=== PATIENT | female | born 1935 | race Caucasian/White ===

== ENCOUNTER 2019-03-21 14:32 | Inpatient (IN) ==
--- NOTE | 2019-03-21 14:56 | Emergency Department Note ---
Disposition Clinical Impression: Pneumonia Qualifiers: Pneumonia type: due to unspecified organism Laterality: left Lung location: lower lobe of lung Qualified Code(s): J18.1 - Lobar pneumonia, unspecified organism Disposition: Admitted As Inpatient Condition: Good Referrals: Meet Calvo MD [Primary Care Provider] - Time of Disposition: 17:07 General Adult HPI - General Stated complaint: pain in lungs Time Seen by Provider: 03/21/19 14:56 Source: patient Mode of arrival: private vehicle Limitations: no limitations Nursing Notes Reviewed: Yes Vital Signs Reviewed: Yes - History of Present Illness HPI Narrative: 83-year-old white female presents emergency department via private vehicle accompanied by several family members. She apparently has a history of having pneumonia in the past. She feels like she has pain in her "left lung." She is had no increase in cough or sputum production. She denies any fever or chills presently, but says that she has them on occasion. She denies any shortness of breath. She is had no abdominal pain, nausea, or vomiting. She appears to be comfortable presently. She has a history of COPD and has never been diagnosed with congestive heart failure according to her family. - Related Data Home Medications Medication Instructions Recorded Confirmed Cholecalciferol (Vitamin D3) 2,000 unit PO DAILY 11/30/17 03/21/19 [Vitamin D] Ipratropium/Albuterol Neb [Duoneb] 3 ml IH QID 11/30/17 03/21/19 Isosorbide MONOnitrate [Isosorbide 60 mg PO DAILY 11/30/17 03/21/19 Mononitrate] Lactobacillus Combination No.8 1 tab PO DAILY 11/30/17 03/21/19 [Adult Probiotic] Montelukast [Singulair] 10 mg PO DAILY 11/30/17 03/21/19 NIFEdipine [Nifedipine ER] 30 mg PO DAILY 11/30/17 03/21/19 Pravastatin Sodium [Pravachol] 40 mg PO DAILY 11/30/17 03/21/19 Raloxifene [Evista] 60 mg PO DAILY 11/30/17 03/21/19 Theophylline Anhydrous 150 mg PO DAILY 11/30/17 03/21/19 [Theophylline] Triamcinolone Acetonide [Nasacort] 2 spray NS DAILY 11/30/17 03/21/19 Alendronate Sodium [Fosamax] 70 mg PO QWEEK 02/19/18 03/21/19 Aspirin [Adult Aspirin Regimen] 81 mg PO DAILY 02/19/18 03/21/19 Buspirone HCl [Buspar] 10 mg PO TID 02/19/18 03/21/19 Furosemide [Lasix] 20 mg PO DAILY 02/19/18 03/21/19 Guaifenesin [Mucus ER] 600 mg PO BID PRN 02/19/18 03/21/19 Calcium Carbonate [Calcium] 600 mg PO DAILY 08/20/18 03/21/19 Venlafaxine HCl [Effexor Xr] 37.5 mg PO DAILY 08/20/18 03/21/19 Fluticasone/Umeclidin/Vilanter 1 each IH DAILY 12/11/18 03/21/19 [Trelegy Ellipta 100-62.5-25] Fluorouracil [Carac] 30 gm TP BID 02/11/19 03/21/19 Metoprolol Tartrate [Lopressor] 25 mg PO BID 02/11/19 03/21/19 Potassium Chloride [Klor-Con 10] 20 meq PO DAILY 02/11/19 03/21/19 Ranitidine HCl [Acid Outpatient Program Coordinator] 150 mg PO BID 02/11/19 03/21/19 Roflumilast [Daliresp] 500 mcg PO DAILY 02/11/19 03/21/19 Vit C/E/Zn/Coppr/Lutein/Zeaxan 2 / PO DAILY 03/21/19 03/21/19 [Preservision Areds 2 Softgel] Previous Rx's Medication Instructions Recorded Levalbuterol Tartrate [Xopenex Hfa] 15 gm IH Q8H #1 hfa.aer.ad 12/27/18 Allergies Allergy/AdvReac Type Severity Reaction Status Date / Time atorvastatin [From Lipitor] Allergy Hives Verified 03/21/19 14:49 doxycycline Allergy Rash Verified 03/21/19 14:49 iodine Allergy See Verified 03/21/19 14:49 Comments iopamidol [From Isovue-M] Allergy Hives Verified 03/21/19 14:49 lisinopril Allergy Rash Verified 03/21/19 14:49 metformin Allergy Rash Verified 03/21/19 14:49 Penicillins Allergy Gastrointestinal Verified 03/21/19 14:49 Upset Sulfa (Sulfonamide Allergy Rash Verified 03/21/19 14:49 Antibiotics) All systems ED: reviewed and negative except as stated. Constitutional: Denies: fever, chills, weakness, weight change Eyes: Denies: eye pain, eye discharge, vision change ENT ED: Denies: ear pain, throat pain, dental pain, hearing loss, epistaxis, congestion, dysphagia Cardiovascular: Reports: as per HPI, chest pain. Denies: palpitations, dyspnea on exertion, edema, syncope Respiratory: Reports: as per HPI. Denies: cough, dyspnea, wheezes Gastrointestinal: Denies: abdominal pain, nausea, vomiting, diarrhea, constipation, hematemesis, melena, hematochezia Genitourinary: Denies: dysuria, frequency, hematuria, discharge Musculoskeletal: Denies: back pain, neck pain, arthralgia, myalgia Integumentary: Denies: rash, abrasion, lesions Neurological: Denies: headache, weakness, numbness, paresthesias, confusion, abnormal gait, vertigo Psychiatric: Denies: anxiety, depression, suicidal thoughts, homicidal thoughts, auditory hallucinations, visual hallucinations Endocrine: Denies: fatigue Hematological/Lymphatic: Denies: easy bleeding, easy bruising Allergic/Immunologic: Denies: facial swelling, urticaria Past Medical History - Past Medical History Medical history: Reports: COPD, coronary artery disease, GERD, hyperlipidemia, hypertension Surgical history: Reports: angioplasty/stent, hysterectomy Psychiatric history: Reports: 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, 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 - Social History Smoking Status: Never smoker Smokeless Tobacco Status: No Alcohol use: Reports: none Drug use: Reports: none Physical Exam - General Limitations: no limitations General appearance: alert, in no apparent distress - Head Head exam: atraumatic, normocephalic, normal inspection - Eye Eye exam: Present: normal appearance - ENT ENT exam: normal exam, normal oropharynx, mucous membranes moist - Neck Neck exam: Present: normal inspection, full ROM, trachea midline - Chest Chest inspection: Present: normal inspection, symmetric chest wall rise - Respiratory Respiratory exam: Present: normal lung sounds bilaterally - Cardiovascular Cardiovascular exam: Present: regular rate, normal rhythm, normal heart sounds - Abdominal Exam Abdominal exam: Present: soft, Non-Tender. Absent: tenderness, distention, guarding, rebound, rigidity, organomegaly, mass - Extremities Exam Extremities exam: Present: normal inspection, full ROM. Absent: tenderness, pedal edema - Back Exam Back exam: Present: normal inspection, full ROM. Absent: tenderness, CVA tenderness (R), CVA tenderness (L) - Neurological Exam Neurological exam: Present: alert, oriented X3, CN II-XII intact. Absent: motor sensory deficit - Psychiatric Psychiatric exam: Present: normal affect, normal mood - Skin Skin exam: Present: warm, dry, intact, normal color Course Course Narrative: Discussed the patient's results with the patient and her family and it is agreed that she would need to be admitted to the hospital. Spoke with Dr. Calloway at [phone] and the patient will be admitted here in [place]. Orders will be written for Dr. Calloway. Vital Signs Temperature 97.7 F 03/21/19 14:45 Pulse Rate 87 03/21/19 14:45 Respiratory Rate 26 03/21/19 14:45 Blood Pressure 135/63 03/21/19 14:45 O2 Sat by Pulse Oximetry 93 03/21/19 14:45 Temperature 97.7 F 03/21/19 14:45 Pulse Rate 87 03/21/19 14:45 Respiratory Rate 26 03/21/19 14:45 Blood Pressure 135/63 03/21/19 14:45 O2 Sat by Pulse Oximetry 93 03/21/19 14:45 Oxygen Delivery Oxygen Delivery Nasal Cannula Medical Decision Making - Lab Data Lab results reviewed: Yes I reviewed the patient's lab results. Result diagrams: 03/21/19 15:31 03/21/19 15:31 Lab Results 03/21/19 03/21/19 03/21/19 Range/Units 15:31 15:31 15:31 WBC 24.7 H (4.3-11.1) K/mcL RBC 4.19 (3.82-4.97) M/mcL Hgb 12.5 (11.5-15.4) g/dL Hct 37.2 (35.3-44.9) % MCV 88.8 (83.0-100.0) fL MCH 29.8 (28.0-33.3) pg MCHC 33.6 (31.6-35.5) g/dL RDW 14.7 H (11.5-14.5) % Plt Count 588 H (140-400) K/mcL MPV 9.3 L (9.4-12.4) fL Immature Gran % 1.3 (0-4) % Seg Neutrophils % 88.1 % Lymphocytes % 3.4 % Monocytes % 6.3 % Eosinophils % 0.6 % Basophils % 0.3 % Neutrophils # 21.8 H (1.6-8.9) K/mcL Lymphocytes # 0.8 (0.6-4.6) K/mcL Monocytes # 1.6 H (0.0-1.3) K/mcL Eosinophils # 0.2 (0.0-0.6) K/mcL Basophils # 0.1 (0.0-0.2) K/mcL PT 12.3 H (9.4-12.1) Seconds INR 1.1 Sodium 129 L (136-145) mEq/L Potassium 4.1 (3.5-5.1) mEq/L Chloride 96 L (98-107) mEq/L Carbon Dioxide 27 (23-29) mEq/L BUN 17 (8-23) mg/dL Creatinine 0.73 (0.60-1.20) mg/dL Est GFR ( Amer) > 60 (> 60) Est GFR (Non-Af Amer) > 60 (> 60) BUN/Creatinine Ratio 23 (6-26) Glucose 160 H (70-105) mg/dL Calculated Osmolality 273 L (280-300) Lactic Acid (0.5-2.2) mmol/L Calcium 9.7 (8.6-10.3) mg/dL Troponin I < 0.03 (< 0.04) ng/mL B-Natriuretic Peptide (Less than 100) pg/mL 03/21/19 03/21/19 Range/Units 15:31 15:31 WBC (4.3-11.1) K/mcL RBC (3.82-4.97) M/mcL Hgb (11.5-15.4) g/dL Hct (35.3-44.9) % MCV (83.0-100.0) fL MCH (28.0-33.3) pg MCHC (31.6-35.5) g/dL RDW (11.5-14.5) % Plt Count (140-400) K/mcL MPV (9.4-12.4) fL Immature Gran % (0-4) % Seg Neutrophils % % Lymphocytes % % Monocytes % % Eosinophils % % Basophils % % Neutrophils # (1.6-8.9) K/mcL Lymphocytes # (0.6-4.6) K/mcL Monocytes # (0.0-1.3) K/mcL Eosinophils # (0.0-0.6) K/mcL Basophils # (0.0-0.2) K/mcL PT (9.4-12.1) Seconds INR Sodium (136-145) mEq/L Potassium (3.5-5.1) mEq/L Chloride (98-107) mEq/L Carbon Dioxide (23-29) mEq/L BUN (8-23) mg/dL Creatinine (0.60-1.20) mg/dL Est GFR ( Amer) (> 60) Est GFR (Non-Af Amer) (> 60) BUN/Creatinine Ratio (6-26) Glucose (70-105) mg/dL Calculated Osmolality (280-300) Lactic Acid 1.9 (0.5-2.2) mmol/L Calcium (8.6-10.3) mg/dL Troponin I (< 0.04) ng/mL B-Natriuretic Peptide 124 H (Less than 100) pg/mL - Radiology Data Radiology results reviewed: Yes I reviewed the patient's radiology results. XR chest 2V IMPRESSION: Mild increase in the small left pleural effusion and left lower lobe atelectasis Mild COPD D/ / Austin Baxter MD / Austin Baxter MD - EKG Data EKG #1 EKG attestation: Yes I reviewed and interpreted this EKG. EKG results narrative: Twelve-lead EKG shows a normal sinus rhythm with a rate of 90. Normal axis. No acute ST elevation or depression is appreciated.
[2019-03-21 15:44] LABS: Basophils # 0.1 K/mcL (0.0-0.2); Basophils % 0.3 %; Eosinophils # 0.2 K/mcL (0.0-0.6); Eosinophils % 0.6 %; Hematocrit 37.2 % (35.3-44.9); Hemoglobin 12.5 g/dL (11.5-15.4); Immature Granulocytes % 1.3 % (0-4); Lymphocytes # 0.8 K/mcL (0.6-4.6); Lymphocytes % 3.4 %; Mean Corpuscular HGB Conc 33.6 g/dL (31.6-35.5); Mean Corpuscular Hemoglobin 29.8 pg (28.0-33.3); Mean Corpuscular Volume 88.8 fL (83.0-100.0); Mean Platelet Volume 9.3 fL (9.4-12.4); Monocytes # 1.6 K/mcL (0.0-1.3); Monocytes % 6.3 %; Neutrophils # 21.8 K/mcL (1.6-8.9); Platelet Count 588 K/mcL (140-400); Red Blood Count 4.19 M/mcL (3.82-4.97); Red Cell Distribution Width 14.7 % (11.5-14.5); Segmented Neutrophils % 88.1 %; White Blood Count 24.7 K/mcL (4.3-11.1)
[2019-03-21 15:52] LABS: INR 1.1; Prothrombin Time 12.3 Seconds (9.4-12.1)
[2019-03-21] MEDS ORDERED: Aztreonam 2,000 MG in 0.9 % Sodium Chloride Mini Bag 100 ML IVPB ONE (16:00)
[2019-03-21] MEDS ORDERED: levoFLOXacin 750 MG/150 ML 750 MG/150 ML BAG IVPB ONE (16:01)
[2019-03-21 16:07] LABS: BUN/Creatinine Ratio 23 (6-26); Blood Urea Nitrogen 17 mg/dL (8-23); Calcium 9.7 mg/dL (8.6-10.3); Carbon Dioxide 27 mEq/L (23-29); Chloride 96 mEq/L (98-107); Glucose 160 mg/dL (70-105); Osmolality,Calculated 273 (280-300); Potassium 4.1 mEq/L (3.5-5.1); Sodium 129 mEq/L (136-145); eGFR For African Americans > 60 (> 60); eGFR For Non-African Americans > 60 (> 60)
[2019-03-21 16:11] LABS: Troponin I < 0.03 ng/mL (< 0.04)
[2019-03-21] MEDS ORDERED: Naloxone 0.4 MG/ML INJ IVP PRN (19:48)
[2019-03-21] MEDS: 0.9 % Sodium Chloride 1,000 ML IVC SCH (22:21)
[2019-03-21] MEDS: Ipratropium/Albuterol Neb 3 ML IH SCH (22:22)
[2019-03-21] MEDS: Famotidine 20 MG TABLET PO SCH (22:22)
[2019-03-21] MEDS: FLUOROURACIL 30 GM TP SCH (22:23)
[2019-03-21] MEDS: Levalbuterol 1 PUFF INHALER IH SCH (23:29)
[2019-03-21] MEDS: traMADol 50 MG TABLET PO PRN (23:30)
[2019-03-22] MEDS: Ipratropium/Albuterol Neb 3 ML IH SCH ×4 (05:36→23:00)
[2019-03-22] MEDS: traMADol 50 MG TABLET PO PRN ×3 (05:36→22:33)
[2019-03-22] MEDS: Levalbuterol 1 PUFF INHALER IH SCH ×3 (07:21→23:01)
[2019-03-22] MEDS: Acetaminophen 325 MG TABLET PO PRN (09:12)
[2019-03-22] MEDS: Venlafaxine XR (24 HR) 37.5 MG CAP.ER.24H PO SCH (09:13)
[2019-03-22] MEDS: Aspirin Enteric Coated 81 MG Tablet PO SCH (09:13)
[2019-03-22] MEDS: Famotidine 20 MG TABLET PO SCH ×2 (09:13→21:24)
[2019-03-22] MEDS: Isosorbide MONOnitrate (24 HR) 60 MG TAB.ER.24H PO SCH (09:13)
[2019-03-22] MEDS: Furosemide 20 MG TABLET PO SCH (09:14)
[2019-03-22] MEDS: Multivit/Ca/Min/Fe/FA 1 TAB TABLET PO SCH (09:14)
[2019-03-22] MEDS: Cholecalciferol (D-3) 1,000 UNIT (25MCG) TABLET PO SCH (09:14)
[2019-03-22] MEDS: Lactobacillus 1 EACH CAP.SPRINK PO SCH (09:14)
[2019-03-22] MEDS: (Roflumilast [Daliresp] 500 MCG) PO SCH (09:15)
[2019-03-22] MEDS: Fluticasone Propionate Nasal 50 MCG/SPRAY BOTTLE NS SCH (09:15)
[2019-03-22] MEDS: (Pravastatin Sodium [Pravachol] 40 MG) PO SCH (09:15)
[2019-03-22] MEDS: NIFEdipine XL (24 HR) 30 MG TAB.ER.24 PO SCH (09:17)
[2019-03-22] MEDS: FLUOROURACIL 30 GM TP SCH ×2 (09:22→21:29)
[2019-03-22] MEDS: TRELEGY ELLIPTA IH SCH (09:23)
[2019-03-22] MEDS: THEOPHYLLINE 150 MG PO SCH (09:23)
--- NOTE | 2019-03-22 09:53 | Internal Med History&Physical ---
Date of Encounter: 03/22/19 Time of Encounter: 09:51 Assessment and Plan (1) Pneumonia Current visit: Yes Status: Acute Continue antibiotics and breathing treatments. Monitor for improvement. Qualifiers: Pneumonia type: due to unspecified organism Laterality: left Lung location: lower lobe of lung Qualified Code(s): J18.1 - Lobar pneumonia, unspecified organism (2) COPD (chronic obstructive pulmonary disease) Current visit: Yes Status: Acute Continue oxygen. Continue inhaled meds. Monitor. Qualifiers: COPD type: unspecified COPD Qualified Code(s): J44.9 - Chronic obstructive pulmonary disease, unspecified (3) CAD (coronary artery disease) Current visit: Yes Status: Acute Stable. Denies chest pain. Continue current medication. Qualifiers: Coronary Disease-Associated Artery/Lesion type: unspecified vessel or lesion type [place] vs. transplanted heart: [place] heart Associated angina: without angina Qualified Code(s): I25.10 - Atherosclerotic heart disease of [place] coronary artery without angina pectoris (4) Hypertension Current visit: Yes Status: Acute Controlled with current medication. Monitor blood pressure. Qualifiers: Hypertension type: essential hypertension Qualified Code(s): I10 - Essential (primary) hypertension Internal Medicine - H&P: HPI Admitted From: Emergency Dept Plans for Post Hospital Care: Home History of present illness: Ms. Gonsales is a 83 year old female admitted to hospital after presenting to emergency room with shortness of breath and pain and left lung area. Patient states this started the night before and progressively got worse throughout the day. Patient denies cough, fever, chills, nausea vomiting or diarrhea. Denies increased shortness of breath at this time. Denies chest pain at this time. Is being treated for pneumonia. Past medical history includes COPD, CAD, Gerd, hyperlipidemia, hypertension, anxiety and depression. Lives at home with Niece. Does have home oxygen and just wears on an as needed basis. States appetite is decreased that is maintaining hydration. Last bowel movement was yesterday. Past Med Surg Social Fam HX - Past Medical History Medical history: COPD, coronary artery disease, GERD, hyperlipidemia, hypertension Psychiatric history: anxiety, depression - Past Surgical History Surgical History: angioplasty/stent, hysterectomy Additional surgical history: heart stent - Social History Smoking Status: Former smoker Smokeless Tobacco Status: No Alcohol use: none Drug use: none - Family History Mother Living Status: Internal Medicine - H&P: Meds Cholecalciferol (Vitamin D3) [Vitamin D] 2,000 unit PO DAILY 11/30/17 [History] Ipratropium/Albuterol Neb [Duoneb] 3 ml IH QID 11/30/17 [History] Isosorbide MONOnitrate [Isosorbide Mononitrate] 60 mg PO DAILY 11/30/17 [History] Lactobacillus Combination No.8 [Adult Probiotic] 1 tab PO DAILY 11/30/17 [History] Montelukast [Singulair] 10 mg PO DAILY 11/30/17 [History] NIFEdipine [Nifedipine ER] 30 mg PO DAILY 11/30/17 [History] Pravastatin Sodium [Pravachol] 40 mg PO DAILY 11/30/17 [History] Raloxifene [Evista] 60 mg PO DAILY 11/30/17 [History] Theophylline Anhydrous [Theophylline] 150 mg PO DAILY 11/30/17 [History] Triamcinolone Acetonide [Nasacort] 2 spray NS DAILY 11/30/17 [History] Alendronate Sodium [Fosamax] 70 mg PO QWEEK 02/19/18 [History] Aspirin [Adult Aspirin Regimen] 81 mg PO DAILY 02/19/18 [History] Buspirone HCl [Buspar] 10 mg PO TID 02/19/18 [History] Furosemide [Lasix] 20 mg PO DAILY 02/19/18 [History] Guaifenesin [Mucus ER] 600 mg PO BID PRN 02/19/18 [History] Calcium Carbonate [Calcium] 600 mg PO DAILY 08/20/18 [History] Venlafaxine HCl [Effexor Xr] 37.5 mg PO DAILY 08/20/18 [History] Fluticasone/Umeclidin/Vilanter [Trelegy Ellipta 100-62.5-25] 1 each IH DAILY 12/11/18 [History] Levalbuterol Tartrate [Xopenex Hfa] 15 gm IH Q8H #1 hfa.aer.ad 12/27/18 [Rx] Fluorouracil [Carac] 30 gm TP BID 02/11/19 [History] Metoprolol Tartrate [Lopressor] 25 mg PO BID 02/11/19 [History] Potassium Chloride [Klor-Con 10] 20 meq PO DAILY 02/11/19 [History] Ranitidine HCl [Acid Talent Analyst] 150 mg PO BID 02/11/19 [History] Roflumilast [Daliresp] 500 mcg PO DAILY 02/11/19 [History] Vit C/E/Zn/Coppr/Lutein/Zeaxan [Preservision Areds 2 Softgel] 2 / PO DAILY 03/21/19 [History] Allergy/AdvReac Type Severity Reaction Status Date / Time atorvastatin [From Lipitor] Allergy Hives Verified 03/21/19 14:49 doxycycline Allergy Rash Verified 03/21/19 14:49 iodine Allergy See Verified 03/21/19 14:49 Comments iopamidol [From Isovue-M] Allergy Hives Verified 03/21/19 14:49 lisinopril Allergy Rash Verified 03/21/19 14:49 metformin Allergy Rash Verified 03/21/19 14:49 Penicillins Allergy Gastrointestinal Verified 03/21/19 14:49 Upset Sulfa (Sulfonamide Allergy Rash Verified 03/21/19 14:49 Antibiotics) All Systems PM: A 10-system review of systems was performed and is negative for pertinent findings except as documented above in the HPI. - Constitutional Constitutional: no chills, no fever(s), no night sweats - EENT Eyes: no change in vision, no discharge, no pain, no photophobia Ears: no ear discharge, no ear pain, no tinnitus Nose, mouth and throat: no dysphagia, no nasal discharge, no neck pain, no sore throat - Cardiovascular Cardiovascular ROS IM: no chest pain, no diaphoresis, no dyspnea, no lightheadedness, no palpitations, no syncope - Respiratory Respiratory: no cough, no dyspnea, no wheezing, no excessive phlegm production - Gastrointestinal Gastrointestinal: no abdominal pain, no diarrhea, no hematemesis, no hematochezia, no melena, no nausea, no vomiting - Genitourinary Genitourinary: no change in urinary stream, no dysuria, no flank pain, no hematuria - Musculoskeletal Musculoskeletal ROS IM: no numbness, no tingling - Integumentary Integumentary IM: no rash, no unusual bruising - Neurological Neurological ROS: no confusion, no convulsions, no focal weakness, no numbness, no tingling, no tremor(s) - Hematologic/Lymphatic Hematologic/Lymphatic: no easy bruising - Constitutional Vitals: Temp Pulse Resp BP Pulse Ox 96.8 F L 76 18 130/73 93 03/22/19 07:54 03/22/19 07:54 03/22/19 07:54 03/22/19 07:54 03/22/19 07:54 General appearance: Present: cooperative, A&O X 3, pleasant, no acute distress, answers questions appropriately Exam: Sitting in chair - Head Head exam: Present: atraumatic, normocephalic - Eye Eye exam: Present: PERRL, conjuntiva pink, sclera anicteric Pupils: Present: PERRL - Neck Neck exam general surgery: Present: supple, trachea midline. Absent: lymphadenopathy - Respiratory Respiratory exam: Present: CTAB. Absent: accessory muscle use, rales, rhonchi, wheezes Additional comments: Diminished throughout - Cardiovascular Cardiovascular exam: Present: RRR, +S1, +S2, systolic murmur. Absent: diastolic murmur, gallop, rubs - GI/Abdominal GI/Abdominal exam: Present: normal bowel sounds, soft, no peritoneal signs. Absent: distended, tenderness - Extremities Exam Extremities exam: Present: warm, radial pulses palpable and symmetrical. Absent: calf tenderness, cyanotic, pedal edema Additional comments: Non-pitting edema to bilateral lower extremities. - Neurological Exam Neurological exam: Present: CN II-XII intact, oriented X3, no focal deficits. Absent: pronater drift, facial droop, speech deficit - Skin Skin exam: Present: dry, intact Internal Med - H&P Results - Labs CBC & Chem 7: 03/21/19 15:31 03/21/19 15:31 Labs: Short CBC 03/21/19 Range/Units 15:31 WBC 24.7 H (4.3-11.1) K/mcL Hgb 12.5 (11.5-15.4) g/dL Hct 37.2 (35.3-44.9) % Plt Count 588 H (140-400) K/mcL Neutrophils # 21.8 H (1.6-8.9) K/mcL BMP 03/21/19 15:31 Sodium 129 L Potassium 4.1 Chloride 96 L Carbon Dioxide 27 BUN 17 Creatinine 0.73 Glucose 160 H Calcium 9.7 Cardiac Enzymes 03/21/19 Range/Units 15:31 Troponin I < 0.03 (< 0.04) ng/mL - Impressions ITS Impressions Chest X-Ray 03/21/19 15:04 IMPRESSION: Mild increase in the small left pleural effusion and left lower lobe atelectasis. Mild COPD. D/ / 03/21/2019 16:01:33 Austin Baxter MD / [email or web address] Interpreting Provider: Austin Baxter MD
[2019-03-22] MEDS ORDERED: Melatonin 3 MG TABLET PO PRN (10:06)
[2019-03-22] MEDS: *HR* Promethazine 25 MG/ML VIAL IVP PRN (10:43)
[2019-03-22 11:14] LABS: Basophils # 0.1 K/mcL (0.0-0.2); Basophils % 0.3 %; Eosinophils # 0.1 K/mcL (0.0-0.6); Eosinophils % 0.5 %; Hematocrit 35.5 % (35.3-44.9); Hemoglobin 11.6 g/dL (11.5-15.4); Lymphocytes # 0.4 K/mcL (0.6-4.6); Lymphocytes % 2.3 %; Mean Corpuscular HGB Conc 32.7 g/dL (31.6-35.5); Mean Corpuscular Hemoglobin 29.6 pg (28.0-33.3); Mean Corpuscular Volume 90.6 fL (83.0-100.0); Mean Platelet Volume 9.3 fL (9.4-12.4); Monocytes # 1.2 K/mcL (0.0-1.3); Monocytes % 6.1 %; Platelet Count 521 K/mcL (140-400); Red Blood Count 3.92 M/mcL (3.82-4.97); Segmented Neutrophils % 88.8 %; White Blood Count 19.1 K/mcL (4.3-11.1)
[2019-03-22 11:32] LABS: BUN/Creatinine Ratio 16 (6-26); Blood Urea Nitrogen 10 mg/dL (8-23); Calcium 8.9 mg/dL (8.6-10.3); Carbon Dioxide 27 mEq/L (23-29); Chloride 95 mEq/L (98-107); Glucose 180 mg/dL (70-105); Osmolality,Calculated 274 (280-300); Sodium 130 mEq/L (136-145); eGFR For African Americans > 60 (> 60); eGFR For Non-African Americans > 60 (> 60)
[2019-03-22] MEDS: *HR* Enoxaparin 30 MG/0.3 ML SYRINGE SQ SCH (12:22)
[2019-03-22] MEDS: levoFLOXacin 500 MG/100 ML 500 MG/100 ML BAG IVPB SCH (14:11)
[2019-03-22] MEDS: 0.9 % Sodium Chloride 1,000 ML IVC SCH (21:22)
[2019-03-23] MEDS: traMADol 50 MG TABLET PO PRN ×3 (04:34→17:13)
[2019-03-23] MEDS: Ipratropium/Albuterol Neb 3 ML IH SCH ×4 (05:21→21:15)
[2019-03-23] MEDS: *HR* Enoxaparin 30 MG/0.3 ML SYRINGE SQ SCH (06:19)
[2019-03-23] MEDS: Levalbuterol 1 PUFF INHALER IH SCH ×3 (06:20→21:16)
[2019-03-23] MEDS: Acetaminophen 325 MG TABLET PO PRN ×3 (08:00→21:27)
[2019-03-23] MEDS: NIFEdipine XL (24 HR) 30 MG TAB.ER.24 PO SCH (10:38)
[2019-03-23] MEDS: Venlafaxine XR (24 HR) 37.5 MG CAP.ER.24H PO SCH (10:38)
[2019-03-23] MEDS: Cholecalciferol (D-3) 1,000 UNIT (25MCG) TABLET PO SCH (10:39)
[2019-03-23] MEDS: Aspirin Enteric Coated 81 MG Tablet PO SCH (10:39)
[2019-03-23] MEDS: Multivit/Ca/Min/Fe/FA 1 TAB TABLET PO SCH (10:39)
[2019-03-23] MEDS: Furosemide 20 MG TABLET PO SCH (10:39)
[2019-03-23] MEDS: Famotidine 20 MG TABLET PO SCH ×2 (10:39→21:13)
[2019-03-23] MEDS: levoFLOXacin 500 MG/100 ML 500 MG/100 ML BAG IVPB SCH (10:39)
[2019-03-23] MEDS: Isosorbide MONOnitrate (24 HR) 60 MG TAB.ER.24H PO SCH (10:39)
[2019-03-23] MEDS: Lactobacillus 1 EACH CAP.SPRINK PO SCH (10:39)
[2019-03-23] MEDS: Fluticasone Propionate Nasal 50 MCG/SPRAY BOTTLE NS SCH (10:41)
[2019-03-23] MEDS: (Roflumilast [Daliresp] 500 MCG) PO SCH (10:42)
[2019-03-23] MEDS: (Pravastatin Sodium [Pravachol] 40 MG) PO SCH (10:42)
[2019-03-23] MEDS: FLUOROURACIL 30 GM TP SCH ×2 (10:42→21:14)
[2019-03-23] MEDS: TRELEGY ELLIPTA IH SCH (10:43)
[2019-03-23] MEDS: THEOPHYLLINE 150 MG PO SCH (10:43)
--- NOTE | 2019-03-23 12:04 | Internal Med Progress Note ---
Date of Encounter: 03/23/19 Time of Encounter: 12:01 - Assessment and plan (1) Pneumonia Current Visit: Yes Status: Acute Assessment and plan: Patient continues on current IV antibiotics due to her left lower lobe pneumonia. Patient continues with complaints of a purpuric-type pain to her left chest flank which increases with deep inspiration. No rubs or crepitus noted, but noted fine basilar rales. Afebrile. No productive cough. No palpitations. We will continue with current medications and plan a care. Qualifiers: Pneumonia type: due to unspecified organism Laterality: left Lung location: lower lobe of lung Qualified Code(s): J18.1 - Lobar pneumonia, unspecified organism (2) COPD (chronic obstructive pulmonary disease) Current Visit: Yes Status: Acute Assessment and plan: No acute issues at this time. Patient denies any dyspnea or productive cough. Patient continues with complaints of a pleuritic type pain to her left chest flank. Patient also continues on antibiotics at this time for lower left lobe pneumonia. Qualifiers: COPD type: unspecified COPD Qualified Code(s): J44.9 - Chronic obstructive pulmonary disease, unspecified (3) CAD (coronary artery disease) Current Visit: Yes Status: Acute Assessment and plan: No acute issues. Patient denies any chest discomforts or palpitations. We will continue with current plan of care Qualifiers: Coronary Disease-Associated Artery/Lesion type: unspecified vessel or lesion type [place] vs. transplanted heart: [place] heart Associated angina: without angina Qualified Code(s): I25.10 - Atherosclerotic heart disease of [place] coronary artery without angina pectoris (4) Hypertension Current Visit: Yes Status: Acute Assessment and plan: Vital signs remained stable. We will continue with current medications. Qualifiers: Hypertension type: essential hypertension Qualified Code(s): I10 - Essential (primary) hypertension - Time Spent With Patient less than 15 minutes - Subjective Interval history: Patient appears relaxed and currently denies any dyspnea or productive cough. Patient states she continues to have intermittent pain underneath her left breas t area which she states has been present over the past several years intermittently. He states that the pain increases somewhat with deep inspiration. Denies any orther discomforts or palpitation. Patient has had complaints of increased tremors to her hands over the past few weeks. Patient noted to be on multiple bronchodilators - Constitutional Vitals: Temp Pulse Resp BP Pulse Ox 98.4 F 78 18 135/80 98 03/23/19 04:00 03/23/19 04:00 03/23/19 10:25 03/23/19 04:00 03/23/19 10:25 General appearance: Present: cooperative, A&O X 3, pleasant, no acute distress, answers questions appropriately - Head Head exam: Present: atraumatic, normocephalic - Eye Eye exam: Present: PERRL, conjuntiva pink, sclera anicteric Pupils: Present: PERRL - Neck Neck exam general surgery: Present: supple, trachea midline. Absent: lymphadenopathy - Respiratory Respiratory exam: Present: decreased breath sounds, CTAB, rales. Absent: access ory muscle use, rhonchi, wheezes Additional comments: Lungs are clear to upper [place] but noted fine basilar rales posteriorly. No crepitus or rub heard. Respiratory effort appears relaxed - Cardiovascular Cardiovascular exam: Present: RRR, +S1, +S2. Absent: diastolic murmur, gallop, rubs, systolic murmur - GI/Abdominal GI/Abdominal exam: Present: normal bowel sounds, soft, no peritoneal signs. Absent: distended, tenderness - Extremities Exam Extremities exam: Present: warm, radial pulses palpable and symmetrical. Absent: calf tenderness, cyanotic, pedal edema - Neurological Exam Neurological exam: Present: CN II-XII intact, oriented X3, no focal deficits. Absent: pronater drift, facial droop, speech deficit - Skin Skin exam: Present: dry, intact Internal Medicine: Result - Labs CBC & Chem 7: 03/22/19 11:03 03/22/19 11:03 - ABG Interpretation ABG results: PT/INR, D-dimer PT 12.3 Seconds (9.4-12.1) H 03/21/19 15:31 Consult Discharge Plan - Plan Referrals: Meet Calvo MD [Primary Care Provider] -
[2019-03-24] MEDS: Acetaminophen 325 MG TABLET PO PRN ×4 (04:23→23:38)
[2019-03-24] MEDS: Ipratropium/Albuterol Neb 3 ML IH SCH ×4 (04:23→23:40)
[2019-03-24] MEDS: traMADol 50 MG TABLET PO PRN ×4 (05:59→20:39)
[2019-03-24] MEDS: *HR* Enoxaparin 30 MG/0.3 ML SYRINGE SQ SCH (06:00)
[2019-03-24] MEDS: Levalbuterol 1 PUFF INHALER IH SCH ×3 (06:02→23:40)
[2019-03-24] MEDS: Fluticasone Propionate Nasal 50 MCG/SPRAY BOTTLE NS SCH (08:18)
[2019-03-24] MEDS: levoFLOXacin 500 MG/100 ML 500 MG/100 ML BAG IVPB SCH (08:18)
[2019-03-24] MEDS: Venlafaxine XR (24 HR) 37.5 MG CAP.ER.24H PO SCH (08:19)
[2019-03-24] MEDS: Famotidine 20 MG TABLET PO SCH ×2 (08:19→20:38)
[2019-03-24] MEDS: Lactobacillus 1 EACH CAP.SPRINK PO SCH ×2 (08:19→20:38)
[2019-03-24] MEDS: Isosorbide MONOnitrate (24 HR) 60 MG TAB.ER.24H PO SCH (08:19)
[2019-03-24] MEDS: NIFEdipine XL (24 HR) 30 MG TAB.ER.24 PO SCH (08:19)
[2019-03-24] MEDS: Cholecalciferol (D-3) 1,000 UNIT (25MCG) TABLET PO SCH (08:19)
[2019-03-24] MEDS: Furosemide 20 MG TABLET PO SCH (08:20)
[2019-03-24] MEDS: Aspirin Enteric Coated 81 MG Tablet PO SCH (08:20)
[2019-03-24] MEDS: Multivit/Ca/Min/Fe/FA 1 TAB TABLET PO SCH (08:20)
[2019-03-24] MEDS: (Roflumilast [Daliresp] 500 MCG) PO SCH (08:21)
[2019-03-24] MEDS: THEOPHYLLINE 150 MG PO SCH (08:21)
[2019-03-24] MEDS: FLUOROURACIL 30 GM TP SCH ×2 (08:21→20:58)
[2019-03-24] MEDS: (Pravastatin Sodium [Pravachol] 40 MG) PO SCH (08:21)
[2019-03-24] MEDS: TRELEGY ELLIPTA IH SCH (10:48)
--- NOTE | 2019-03-24 12:02 | Internal Med Progress Note ---
Date of Encounter: 03/24/19 Time of Encounter: 12:40 - Subjective Interval history: - Assessment and plan (1) Pneumonia Current Visit: Yes Status: Acute Assessment and plan: Patient continues on current IV antibiotics Levaquin due to her left lower lobe pneumonia. Patient has worsening pain to her left chest with cough. which increases with deep inspiration. No rubs or crepitus noted, but noted fine basilar rales. Afebrile. No productive cough. No palpitations. We will continue with current medications except will change her antibiotic to IV Zithromax in light of lack of clinical improvement. Will also give her sputum gram stain and culture. Will give one dose solumedrol for pleuritic pain. If continues to worsen will need imaging. Qualifiers: Pneumonia type: due to unspecified organism Laterality: left Lung location: lower lobe of lung Qualified Code(s): J18.1 - Lobar pneumonia, unspecified organism (2) COPD (chronic obstructive pulmonary disease) Current Visit: Yes Status: Acute Assessment and plan: No acute issues at this time. Patient denies any dyspnea or productive cough. Patient continues with complaints of a pleuritic type pain to her left chest flank. Patient also continues on antibiotics at this time for lower left lobe pneumonia. Qualifiers: COPD type: unspecified COPD Qualified Code(s): J44.9 - Chronic obstructive pulmonary disease, unspecified (3) CAD (coronary artery disease) Current Visit: Yes Status: Acute Assessment and plan: No acute issues. Patient denies any chest discomforts or palpitations. We will continue with current plan of care Qualifiers: Coronary Disease-Associated Artery/Lesion type: unspecified vessel or lesion type [place] vs. transplanted heart: [place] heart Associated angina: without angina Qualified Code(s): I25.10 - Atherosclerotic heart disease of [place] coronary artery without angina pectoris (4) Hypertension Current Visit: Yes Status: Acute Assessment and plan: Vital signs remained stable. We will continue with current medications. Qualifiers: Hypertension type: essential hypertension Qualified Code(s): I10 - Essential (primary) hypertension - Time Spent With Patient less than 15 minutes - Subjective Interval history: Patient has more left sided rib pain today sol with cough. slight thick light green productive cough. She states that the pain increases somewhat with deep inspiration. Denies any orther discomforts or palpitation. Pt says breathing treatments help but she feels some chilling. - EXAM General appearance: Present: Elderly WF soft spoken mild [place] cooperative,alert uncomfortable today - Head Head exam: Present: atraumatic, normocephalic - Eye Eye exam: Present: PERRL, conjuntiva pink, sclera anicteric Pupils: Present: PERRL - Neck Neck exam general surgery: Present: supple, trachea midline. Absent: lymphadenopathy - Respiratory Respiratory exam: Present: decreased breath sounds, CTAB, rales. Absent: accessory muscle use, rhonchi, wheezes Additional comments: Lungs are clear to upper [place] but noted fine basilar rales posteriorly. No crepitus or rub heard. pt notes pain with cough or inspir on left anterior ribs palpation of this area reproduces same pain. - Cardiovascular Cardiovascular exam: Present: RRR, +S1, +S2. Absent: diastolic murmur, gallop, rubs, systolic murmur - GI/Abdominal GI/Abdominal exam: Present: normal bowel sounds, soft, no peritoneal signs. Absent: distended, tenderness - Extremities Exam Extremities exam: Present: warm, radial pulses palpable and symmetrical. Absent: calf tenderness, cyanotic, pedal edema - Neurological Exam Neurological exam: Present: CN II-XII intact, oriented X3, no focal deficits. Absent: pronater drift, facial droop, speech deficit - Constitutional Vitals: Temp Pulse Resp BP Pulse Ox 98.1 F 82 18 133/73 97 03/24/19 07:18 03/24/19 07:18 03/24/19 10:53 03/24/19 07:18 03/24/19 10:53 General appearance: Present: cooperative, A&O X 3, pleasant, no acute distress, answers questions appropriately Internal Medicine: Result - Labs CBC & Chem 7: 03/25/19 05:35 03/25/19 05:35 - ABG Interpretation ABG results: PT/INR, D-dimer PT 12.3 Seconds (9.4-12.1) H 03/21/19 15:31 Consult Discharge Plan - Plan Referrals: Meet Calvo MD [Primary Care Provider] -
[2019-03-24] MEDS: Azithromycin 500 MG in D5% in Water 250 ML IVPB SCH (13:15)
[2019-03-24] MEDS: *HR* Promethazine 25 MG/ML VIAL IVP PRN (17:57)
[2019-03-24] MEDS: Ascorbic Acid 500 MG TABLET PO SCH (20:39)
[2019-03-25] MEDS: Ipratropium/Albuterol Neb 3 ML IH SCH ×3 (04:51→17:52)
[2019-03-25] MEDS: traMADol 50 MG TABLET PO PRN ×3 (04:51→21:48)
[2019-03-25 06:07] LABS: Hematocrit 34.9 % (35.3-44.9); Hemoglobin 11.2 g/dL (11.5-15.4); Mean Corpuscular HGB Conc 32.1 g/dL (31.6-35.5); Mean Corpuscular Hemoglobin 29.2 pg (28.0-33.3); Mean Corpuscular Volume 90.9 fL (83.0-100.0); Mean Platelet Volume 9.4 fL (9.4-12.4); Platelet Count 503 K/mcL (140-400); Red Blood Count 3.84 M/mcL (3.82-4.97); Red Cell Distribution Width 15.1 % (11.5-14.5); White Blood Count 9.6 K/mcL (4.3-11.1)
[2019-03-25 06:26] LABS: Alanine Aminotransferase 7 Units/L (7-52); Albumin 3.2 g/dL (3.5-5.7); Alkaline Phosphatase 51 Units/L (34-104); Aspartate Amino Transferase 11 Units/L (13-39); BUN/Creatinine Ratio 16 (6-26); Bilirubin,Total 0.3 mg/dL (0.3-1.0); Blood Urea Nitrogen 9 mg/dL (8-23); Calcium 8.7 mg/dL (8.6-10.3); Carbon Dioxide 24 mEq/L (23-29); Chloride 103 mEq/L (98-107); Globulin 3.1 g/dL (2.4-3.5); Glucose 101 mg/dL (70-105); Osmolality,Calculated 275 (280-300); Potassium 3.9 mEq/L (3.5-5.1); Sodium 133 mEq/L (136-145); Total Protein 6.3 g/dL (6.4-8.9); eGFR For African Americans > 60 (> 60); eGFR For Non-African Americans > 60 (> 60)
[2019-03-25 06:38] LABS: Thyroid Stimulating Hormone 1.272 mcIU/mL (0.340-5.600)
[2019-03-25] MEDS: *HR* Enoxaparin 30 MG/0.3 ML SYRINGE SQ SCH (06:38)
[2019-03-25] MEDS: Levalbuterol 1 PUFF INHALER IH SCH ×2 (06:39→15:18)
[2019-03-25] MEDS: NIFEdipine XL (24 HR) 30 MG TAB.ER.24 PO SCH (08:15)
[2019-03-25] MEDS: Cholecalciferol (D-3) 1,000 UNIT (25MCG) TABLET PO SCH (08:15)
[2019-03-25] MEDS: Lactobacillus 1 EACH CAP.SPRINK PO SCH ×2 (08:15→21:49)
[2019-03-25] MEDS: Venlafaxine XR (24 HR) 37.5 MG CAP.ER.24H PO SCH (08:16)
[2019-03-25] MEDS: Furosemide 20 MG TABLET PO SCH (08:16)
[2019-03-25] MEDS: Multivit/Ca/Min/Fe/FA 1 TAB TABLET PO SCH (08:16)
[2019-03-25] MEDS: Ascorbic Acid 500 MG TABLET PO SCH ×2 (08:16→21:48)
[2019-03-25] MEDS: Famotidine 20 MG TABLET PO SCH ×2 (08:17→21:49)
[2019-03-25] MEDS: Aspirin Enteric Coated 81 MG Tablet PO SCH (08:17)
[2019-03-25] MEDS: Fluticasone Propionate Nasal 50 MCG/SPRAY BOTTLE NS SCH (08:17)
[2019-03-25] MEDS: Isosorbide MONOnitrate (24 HR) 60 MG TAB.ER.24H PO SCH (08:17)
[2019-03-25] MEDS: FLUOROURACIL 30 GM TP SCH ×2 (08:18→21:49)
[2019-03-25] MEDS: (Roflumilast [Daliresp] 500 MCG) PO SCH (08:18)
[2019-03-25] MEDS: (Pravastatin Sodium [Pravachol] 40 MG) PO SCH (08:18)
[2019-03-25] MEDS: THEOPHYLLINE 150 MG PO SCH (08:19)
[2019-03-25] MEDS: Acetaminophen 325 MG TABLET PO PRN ×2 (08:26→14:04)
[2019-03-25] MEDS: TRELEGY ELLIPTA IH SCH (11:21)
[2019-03-25] MEDS: Azithromycin 500 MG in D5% in Water 250 ML IVPB SCH (13:18)
--- NOTE | 2019-03-25 16:41 | Internal Med Progress Note ---
Date of Encounter: 03/25/19 Time of Encounter: 16:20 - Subjective Interval history: - Assessment and plan (1) Pneumonia Current Visit: Yes Status: Acute Assessment and plan: Patient continues on current IV antibiotics but yesterday taken off of Levaquin for her left lower lobe pneumonia due to lack of clinical response. She was placed on IV Zithromax. She was given 1 dose solumedrol for pleuritic pain. She reports today that was helpful. She says pain less today cough improving. She reports no appetite at all. Pt cindy Finch says no appetite for many months. Patient has worsening pain to her left chest with cough. which increases with deep inspiration. No rubs or crepitus noted, but noted fine basilar rales. Afebrile. She wants to get stronger to go home. Will add Megace to assist with eating. Qualifiers: Pneumonia type: due to unspecified organism Laterality: left Lung location: lower lobe of lung Qualified Code(s): J18.1 - Lobar pneumonia, unspe cified organism (2) COPD (chronic obstructive pulmonary disease) Current Visit: Yes Status: Acute Assessment and plan: No acute issues at this time. Patient denies any dyspnea or productive cough. Patient continues with complaints of a pleuritic type pain to her left chest flank. Patient also continues on antibiotics at this time for lower left lobe pneumonia. Qualifiers: COPD type: unspecified COPD Qualified Code(s): J44.9 - Chronic obstructive pulmonary disease, unspecified (3) CAD (coronary artery disease) Current Visit: Yes Status: Acute Assessment and plan: No acute issues. Patient denies any chest discomforts or palpitations. We will continue with current plan of care Qualifiers: Coronary Disease-Associated Artery/Lesion type: unspecified vessel or lesion type [place] vs. transplanted heart: [place] heart Associated angina: without angina Qualified Code(s): I25.10 - Atherosclerotic heart disease of [place] coronary artery without angina pectoris (4) Hypertension Current Visit: Yes Status: Acute Assessment and plan: Vital signs remained stable. We will continue with current medications. Qualifiers: Hypertension type: essential hypertension Qualified Code(s): I10 - Essential (primary) hypertension - Time Spent With Patient less than 15 minutes - Subjective Interval history: Patient feeling better today. Still weak. Not eating. SAys has had no appetite for months. She did have improvment in left sided rib pain with new medication for pneumonia improved cough. still slight thick light green productive cough Alert very weak. Discussed PT She would like to go back home with her cindy Finch Requests PT to assess and strengthen. Denies any orther discomforts or palpitation. - EXAM General appearance: Present: Elderly WF thin. soft spoken mild [place] cooperative,alert [place] - Head Head exam: Present: atraumatic, normocephalic - Eye Eye exam: Present: PERRL, conjuntiva pink, sclera anicteric Pupils: Present: PERRL - Neck Neck exam general surgery: Present: supple, trachea midline. Absent: lymphadenopathy - Respiratory Respiratory exam: Present: decreased breath sounds, CTAB, rales. Absent: accessory muscle use, rhonchi, wheezes Additional comments: Lungs are clear to upper [place] but noted fine basilar rales posteriorly. No crepitus or rub heard. pt notes pain with cough or inspir on left anterior ribs palpation of this area reproduces same pain. - Cardiovascular Cardiovascular exam: Present: RRR, +S1, +S2. Absent: diastolic murmur, gallop, rubs, systolic murmur - GI/Abdominal GI/Abdominal exam: Present: normal bowel sounds, soft, no peritoneal signs. Absent: distended, tenderness - Extremities Exam Extremities exam: Present: warm, radial pulses palpable and symmetrical. Absent: calf tenderness, cyanotic, pedal edema - Neurological Exam Neurological exam: Present: CN II-XII intact, oriented X3, no focal deficits. - Constitutional Vitals: Temp Pulse Resp BP Pulse Ox 98.4 F 76 16 110/67 94 03/25/19 16:00 03/25/19 16:00 03/25/19 16:00 03/25/19 16:00 03/25/19 16:00 General appearance: Present: cooperative, A&O X 3, pleasant, no acute distress, answers questions appropriately Internal Medicine: Result - Labs CBC & Chem 7: 03/26/19 05:15 03/26/19 05:15 Labs: Short CBC 03/25/19 Range/Units 05:35 WBC 9.6 (4.3-11.1) K/mcL Hgb 11.2 L (11.5-15.4) g/dL Hct 34.9 L (35.3-44.9) % Plt Count 503 H (140-400) K/mcL BMP 03/25/19 05:35 Sodium 133 L Potassium 3.9 Chloride 103 Carbon Dioxide 24 BUN 9 Creatinine 0.57 L Glucose 101 Calcium 8.7 Liver Function 03/25/19 Range/Units 05:35 Total Bilirubin 0.3 (0.3-1.0) mg/dL AST 11 L (13-39) Units/L ALT 7 (7-52) Units/L Alkaline Phosphatase 51 (34-104) Units/L Albumin 3.2 L (3.5-5.7) g/dL - ABG Interpretation ABG results: PT/INR, D-dimer PT 12.3 Seconds (9.4-12.1) H 03/21/19 15:31 Consult Discharge Plan - Plan Referrals: Meet Calvo MD [Primary Care Provider] -
[2019-03-26] MEDS: Ipratropium/Albuterol Neb 3 ML IH SCH ×5 (01:53→22:31)
[2019-03-26] MEDS: Levalbuterol 1 PUFF INHALER IH SCH ×2 (01:54→05:05)
[2019-03-26] MEDS: traMADol 50 MG TABLET PO PRN ×3 (05:04→20:24)
[2019-03-26] MEDS: *HR* Enoxaparin 30 MG/0.3 ML SYRINGE SQ SCH (05:04)
[2019-03-26 06:01] LABS: Hematocrit 36.3 % (35.3-44.9); Hemoglobin 11.7 g/dL (11.5-15.4); Mean Corpuscular HGB Conc 32.2 g/dL (31.6-35.5); Mean Corpuscular Volume 90.1 fL (83.0-100.0); Mean Platelet Volume 9.5 fL (9.4-12.4); Platelet Count 549 K/mcL (140-400); Red Blood Count 4.03 M/mcL (3.82-4.97); White Blood Count 10.2 K/mcL (4.3-11.1)
[2019-03-26 06:09] LABS: Alanine Aminotransferase 6 Units/L (7-52); Albumin 3.2 g/dL (3.5-5.7); Alkaline Phosphatase 61 Units/L (34-104); Aspartate Amino Transferase 11 Units/L (13-39); BUN/Creatinine Ratio 18 (6-26); Bilirubin,Total 0.3 mg/dL (0.3-1.0); Blood Urea Nitrogen 10 mg/dL (8-23); Calcium 8.9 mg/dL (8.6-10.3); Carbon Dioxide 27 mEq/L (23-29); Chloride 102 mEq/L (98-107); Glucose 102 mg/dL (70-105); Osmolality,Calculated 279 (280-300); Potassium 4.4 mEq/L (3.5-5.1); Sodium 135 mEq/L (136-145); Total Protein 6.3 g/dL (6.4-8.9); eGFR For African Americans > 60 (> 60); eGFR For Non-African Americans > 60 (> 60)
[2019-03-26 06:10] LABS: Globulin 3.1 g/dL (2.4-3.5)
[2019-03-26] MEDS: Famotidine 20 MG TABLET PO SCH ×2 (07:57→20:23)
[2019-03-26] MEDS: Multivit/Ca/Min/Fe/FA 1 TAB TABLET PO SCH (07:57)
[2019-03-26] MEDS: Furosemide 20 MG TABLET PO SCH (07:57)
[2019-03-26] MEDS: Isosorbide MONOnitrate (24 HR) 60 MG TAB.ER.24H PO SCH (07:57)
[2019-03-26] MEDS: Cholecalciferol (D-3) 1,000 UNIT (25MCG) TABLET PO SCH (07:57)
[2019-03-26] MEDS: Venlafaxine XR (24 HR) 37.5 MG CAP.ER.24H PO SCH (07:57)
[2019-03-26] MEDS: Acetaminophen 325 MG TABLET PO PRN ×2 (07:57→14:29)
[2019-03-26] MEDS: Aspirin Enteric Coated 81 MG Tablet PO SCH (07:57)
[2019-03-26] MEDS: Ascorbic Acid 500 MG TABLET PO SCH ×2 (07:58→20:24)
[2019-03-26] MEDS: (Pravastatin Sodium [Pravachol] 40 MG) PO SCH (07:59)
[2019-03-26] MEDS: NIFEdipine XL (24 HR) 30 MG TAB.ER.24 PO SCH (07:59)
[2019-03-26] MEDS: Lactobacillus 1 EACH CAP.SPRINK PO SCH ×2 (07:59→20:23)
[2019-03-26] MEDS: (Roflumilast [Daliresp] 500 MCG) PO SCH (07:59)
[2019-03-26] MEDS: Fluticasone Propionate Nasal 50 MCG/SPRAY BOTTLE NS SCH (07:59)
[2019-03-26] MEDS: FLUOROURACIL 30 GM TP SCH ×2 (07:59→20:25)
[2019-03-26] MEDS: THEOPHYLLINE 150 MG PO SCH (08:00)
[2019-03-26] MEDS: TRELEGY ELLIPTA IH SCH (11:30)
--- NOTE | 2019-03-26 11:52 | Internal Med Progress Note ---
Date of Encounter: 03/26/19 Time of Encounter: 11:49 - Assessment and plan (1) Pneumonia Current Visit: Yes Status: Acute Qualifiers: Pneumonia type: due to unspecified organism Laterality: left Lung location: lower lobe of lung Qualified Code(s): J18.1 - Lobar pneumonia, unspecified organism (2) COPD (chronic obstructive pulmonary disease) Current Visit: Yes Status: Acute Qualifiers: COPD type: unspecified COPD Qualified Code(s): J44.9 - Chronic obstructive pulmonary disease, unspecified (3) CAD (coronary artery disease) Current Visit: Yes Status: Acute Qualifiers: Coronary Disease-Associated Artery/Lesion type: unspecified vessel or lesion type [place] vs. transplanted heart: [place] heart Associated angina: without angina Qualified Code(s): I25.10 - Atherosclerotic heart disease of [place] coronary artery without angina pectoris (4) Hypertension Current Visit: Yes Status: Acute Qualifiers: Hypertension type: essential hypertension Qualified Code(s): I10 - Essential (primary) hypertension - Subjective Interval history: Patient appears relaxed and currently denies any dyspnea or productive cough. Patient states she continues to have intermittent pain underneath her left breast area which she states has been present over the past several years i ntermittently. She states that the pain increases somewhat with deep inspiration. Denies any orther discomforts or palpitation. Patient states that she feels that her breathing has improved and is requesting to go home - Constitutional Vitals: Temp Pulse Resp BP Pulse Ox 98.8 F 85 17 151/79 95 03/26/19 07:16 03/26/19 07:16 03/26/19 10:14 03/26/19 07:16 03/26/19 10:14 General appearance: Present: cooperative, A&O X 3, pleasant, no acute distress, answers questions appropriately - Head Head exam: Present: atraumatic, normocephalic - Eye Eye exam: Present: PERRL, conjuntiva pink, sclera anicteric Pupils: Present: PERRL - Neck Neck exam general surgery: Present: supple, trachea midline. Absent: lymphadenopathy - Respiratory Respiratory exam: Present: decreased breath sounds, CTAB, rales. Absent: accessory muscle use, rhonchi, wheezes Additional comments: Lungs - Cardiovascular Cardiovascular exam: Present: RRR, +S1, +S2. Absent: diastolic murmur, gallop, rubs, systolic murmur - GI/Abdominal GI/Abdominal exam: Present: normal bowel sounds, soft, no peritoneal signs. Absent: distended, tenderness - Extremities Exam Extremities exam: Present: warm, radial pulses palpable and symmetrical. Absent: calf tenderness, cyanotic, pedal edema - Neurological Exam Neurological exam: Present: CN II-XII intact, oriented X3, no focal deficits. Absent: pronater drift, facial droop, speech deficit - Skin Skin exam: Present: dry, intact Internal Medicine: Result - Labs CBC & Chem 7: 03/26/19 05:15 03/26/19 05:15 Labs: Short CBC 03/26/19 Range/Units 05:15 WBC 10.2 (4.3-11.1) K/mcL Hgb 11.7 (11.5-15.4) g/dL Hct 36.3 (35.3-44.9) % Plt Count 549 H (140-400) K/mcL BMP 03/26/19 05:15 Sodium 135 L Potassium 4.4 Chloride 102 Carbon Dioxide 27 BUN 10 Creatinine 0.56 L Glucose 102 Calcium 8.9 Liver Function 03/26/19 Range/Units 05:15 Total Bilirubin 0.3 (0.3-1.0) mg/dL AST 11 L (13-39) Units/L ALT 6 L (7-52) Units/L Alkaline Phosphatase 61 (34-104) Units/L Albumin 3.2 L (3.5-5.7) g/dL - ABG Interpretation ABG results: PT/INR, D-dimer PT 12.3 Seconds (9.4-12.1) H 03/21/19 15:31 Consult Discharge Plan - Plan Referrals: Meet Calvo MD [Primary Care Provider] -
--- NOTE | 2019-03-26 12:36 | Electrocardiograph Report ---
[address] [place], [place] [address] Test Date: 2019-03-21 Pat Name: July Gonsales Department: [facility] Room: 115 Gender: F Knocker Out: : 1935 Requested By: Fito Allen Order Number: [id number] Reading MD: Florencio Morfin Measurements Intervals [place] Rate: 90 P: 78 VT: 237 QRS: 61 QRSD: 100 T: 72 QT: 382 QTc: 468 Interpretive Statements Sinus rhythm Prolonged VT interval Anterior infarct, old Electronically Signed On 03-26-2019 12:35:00 EDT by Florencio Morfin
[2019-03-26] MEDS: Azithromycin 500 MG in D5% in Water 250 ML IVPB SCH ×2 (14:29→15:38)
[2019-03-27] MEDS: Ipratropium/Albuterol Neb 3 ML IH SCH ×4 (04:34→23:27)
[2019-03-27] MEDS: traMADol 50 MG TABLET PO PRN ×3 (04:34→23:38)
[2019-03-27] MEDS: *HR* Enoxaparin 30 MG/0.3 ML SYRINGE SQ SCH (04:35)
[2019-03-27 06:21] LABS: Basophils # 0.1 K/mcL (0.0-0.2); Basophils % 0.8 %; Eosinophils # 0.3 K/mcL (0.0-0.6); Eosinophils % 1.9 %; Hematocrit 35.8 % (35.3-44.9); Hemoglobin 11.6 g/dL (11.5-15.4); Immature Granulocytes % 5.6 % (0-4); Lymphocytes # 0.8 K/mcL (0.6-4.6); Lymphocytes % 6.4 %; Mean Corpuscular HGB Conc 32.4 g/dL (31.6-35.5); Mean Corpuscular Volume 89.5 fL (83.0-100.0); Mean Platelet Volume 9.2 fL (9.4-12.4); Monocytes # 1.1 K/mcL (0.0-1.3); Monocytes % 8.5 %; Nucleated Red Blood Cells 0.3 /100 WBC (0); Platelet Count 543 K/mcL (140-400); Red Cell Distribution Width 15.1 % (11.5-14.5); Segmented Neutrophils % 76.8 %
[2019-03-27 06:42] LABS: Platelet Estimate Increased (Normal)
[2019-03-27 06:44] LABS: Alanine Aminotransferase 7 Units/L (7-52); Albumin 3.3 g/dL (3.5-5.7); Albumin/Globulin Ratio 1.1 (1.1-2.2); Alkaline Phosphatase 63 Units/L (34-104); Aspartate Amino Transferase 12 Units/L (13-39); BUN/Creatinine Ratio 22 (6-26); Bilirubin,Total 0.3 mg/dL (0.3-1.0); Blood Urea Nitrogen 13 mg/dL (8-23); Calcium 9.1 mg/dL (8.6-10.3); Carbon Dioxide 25 mEq/L (23-29); Chloride 101 mEq/L (98-107); Globulin 3.1 g/dL (2.4-3.5); Glucose 120 mg/dL (70-105); Osmolality,Calculated 279 (280-300); Potassium 4.5 mEq/L (3.5-5.1); Sodium 134 mEq/L (136-145); Total Protein 6.4 g/dL (6.4-8.9); eGFR For African Americans > 60 (> 60); eGFR For Non-African Americans > 60 (> 60)
[2019-03-27] MEDS: FLUOROURACIL 30 GM TP SCH ×2 (08:45→19:54)
[2019-03-27] MEDS: THEOPHYLLINE 150 MG PO SCH (08:45)
[2019-03-27] MEDS: Famotidine 20 MG TABLET PO SCH ×2 (09:00→19:54)
[2019-03-27] MEDS: NIFEdipine XL (24 HR) 30 MG TAB.ER.24 PO SCH (09:00)
[2019-03-27] MEDS: Furosemide 20 MG TABLET PO SCH (09:01)
[2019-03-27] MEDS: Isosorbide MONOnitrate (24 HR) 60 MG TAB.ER.24H PO SCH (09:01)
[2019-03-27] MEDS: Venlafaxine XR (24 HR) 37.5 MG CAP.ER.24H PO SCH (09:01)
[2019-03-27] MEDS: Acetaminophen 325 MG TABLET PO PRN ×2 (09:01→15:02)
[2019-03-27] MEDS: Ascorbic Acid 500 MG TABLET PO SCH ×2 (09:01→19:54)
[2019-03-27] MEDS: Multivit/Ca/Min/Fe/FA 1 TAB TABLET PO SCH (09:01)
[2019-03-27] MEDS: Lactobacillus 1 EACH CAP.SPRINK PO SCH ×2 (09:01→19:52)
[2019-03-27] MEDS: Cholecalciferol (D-3) 1,000 UNIT (25MCG) TABLET PO SCH (09:01)
[2019-03-27] MEDS: Aspirin Enteric Coated 81 MG Tablet PO SCH (09:02)
[2019-03-27] MEDS: (Pravastatin Sodium [Pravachol] 40 MG) PO SCH (09:06)
[2019-03-27] MEDS: Fluticasone Propionate Nasal 50 MCG/SPRAY BOTTLE NS SCH (09:06)
[2019-03-27] MEDS: (Roflumilast [Daliresp] 500 MCG) PO SCH (09:07)
[2019-03-27] MEDS: TRELEGY ELLIPTA IH SCH (09:08)
--- NOTE | 2019-03-27 10:35 | Internal Med Progress Note ---
Date of Encounter: 03/27/19 Time of Encounter: 10:33 - Assessment and plan (1) Pneumonia Current Visit: Yes Status: Acute Assessment and plan: Improving. Continue antibiotic. Afebrile. Qualifiers: Pneumonia type: due to unspecified organism Laterality: left Lung location: lower lobe of lung Qualified Code(s): J18.1 - Lobar pneumonia, unspecified organism (2) COPD (chronic obstructive pulmonary disease) Current Visit: Yes Status: Acute Assessment and plan: Stable. Continue incentive spirometer. Continue inhaled meds. Qualifiers: COPD type: unspecified COPD Qualified Code(s): J44.9 - Chronic obstructive pulmonary disease, unspecified (3) CAD (coronary artery disease) Current Visit: Yes Status: Acute Assessment and plan: Stable, denies chest pain. Continue current medication. Qualifiers: Coronary Disease-Associated Artery/Lesion type: unspecified vessel or lesion type [place] vs. transplanted heart: [place] heart Associated angina: without angina Qualified Code(s): I25.10 - Atherosclerotic heart disease of [place] coronary artery without angina pectoris (4) Hypertension Current Visit: Yes Status: Acute Assessment and plan: Controlled with current medication. Monitor blood pressure. Qualifiers: Hypertension type: essential hypertension Qualified Code(s): I10 - Essential (primary) hypertension - Time Spent With Patient less than 15 minutes - Subjective Interval history: Sitting up and chair, respiratory therapist encouraging incentive spirometer. Patient denies cough, shortness of breath, fever, chills, nausea vomiting or diarrhea. Denies chest pain States she is tired and needs to go home so she can get some rest. Has been afebrile. Continues on antibiotics. PT to eval due to general weakness. - Constitutional Vitals: Temp Pulse Resp BP Pulse Ox 98.5 F 89 17 138/85 95 03/27/19 07:00 03/27/19 07:00 03/27/19 10:05 03/27/19 07:00 03/27/19 10:05 General appearance: Present: cooperative, A&O X 3, pleasant, no acute distress, answers questions appropriately - Head Head exam: Present: atraumatic, normocephalic - Eye Eye exam: Present: PERRL, conjuntiva pink, sclera anicteric Pupils: Present: PERRL - Neck Neck exam general surgery: Present: supple, trachea midline. Absent: lymphadenopathy - Respiratory Respiratory exam: Present: CTAB. Absent: accessory muscle use, rales, rhonchi, wheezes Additional comments: Diminished bilateral basis - Cardiovascular Cardiovascular exam: Present: RRR, +S1, +S2. Absent: diastolic murmur, gallop, rubs, systolic murmur - GI/Abdominal GI/Abdominal exam: Present: normal bowel sounds, soft, no peritoneal signs. Absent: distended, tenderness - Extremities Exam Extremities exam: Present: warm, radial pulses palpable and symmetrical. Absent: calf tenderness, cyanotic, pedal edema - Neurological Exam Neurological exam: Present: CN II-XII intact, oriented X3, no focal deficits. Absent: pronater drift, facial droop, speech deficit - Skin Skin exam: Present: dry, intact Internal Medicine: Result - Labs CBC & Chem 7: 03/27/19 05:50 03/27/19 05:50 Labs: Short CBC 03/27/19 Range/Units 05:50 WBC 13.0 H (4.3-11.1) K/mcL Hgb 11.6 (11.5-15.4) g/dL Hct 35.8 (35.3-44.9) % Plt Count 543 H (140-400) K/mcL Neutrophils # 10.0 H (1.6-8.9) K/mcL BMP 03/27/19 05:50 Sodium 134 L Potassium 4.5 Chloride 101 Carbon Dioxide 25 BUN 13 Creatinine 0.60 Glucose 120 H Calcium 9.1 Liver Function 03/27/19 Range/Units 05:50 Total Bilirubin 0.3 (0.3-1.0) mg/dL AST 12 L (13-39) Units/L ALT 7 (7-52) Units/L Alkaline Phosphatase 63 (34-104) Units/L Albumin 3.3 L (3.5-5.7) g/dL - ABG Interpretation ABG results: PT/INR, D-dimer PT 12.3 Seconds (9.4-12.1) H 03/21/19 15:31 - Impressions Impressions Chest X-Ray 03/26/19 13:11 IMPRESSION: Stable left basilar atelectasis/scarring. No acute cardiopulmonary disease. D/ / Salomón Figueroa MD / Salomón Figueroa MD Interpreting Provider: Salomón Figueroa MD Consult Discharge Plan - Plan Referrals: Meet Calvo MD [Primary Care Provider] -
[2019-03-27] MEDS: Azithromycin 500 MG in D5% in Water 250 ML IVPB SCH (12:53)
[2019-03-27] MEDS: *HR* Promethazine 25 MG/ML VIAL IVP PRN (14:03)
[2019-03-28] MEDS: *HR* Enoxaparin 30 MG/0.3 ML SYRINGE SQ SCH (04:04)
[2019-03-28] MEDS: Ipratropium/Albuterol Neb 3 ML IH SCH ×2 (04:04→11:23)
[2019-03-28] MEDS: Acetaminophen 325 MG TABLET PO PRN ×2 (04:04→13:24)
[2019-03-28 09:34] VITALS: BP 157/133
[2019-03-28] MEDS: Aspirin Enteric Coated 81 MG Tablet PO SCH (09:57)
[2019-03-28] MEDS: Ascorbic Acid 500 MG TABLET PO SCH (09:57)
[2019-03-28] MEDS: NIFEdipine XL (24 HR) 30 MG TAB.ER.24 PO SCH (09:57)
[2019-03-28] MEDS: Multivit/Ca/Min/Fe/FA 1 TAB TABLET PO SCH (09:57)
[2019-03-28] MEDS: Furosemide 20 MG TABLET PO SCH (09:57)
[2019-03-28] MEDS: Lactobacillus 1 EACH CAP.SPRINK PO SCH (09:57)
[2019-03-28] MEDS: Cholecalciferol (D-3) 1,000 UNIT (25MCG) TABLET PO SCH (09:57)
[2019-03-28] MEDS: Isosorbide MONOnitrate (24 HR) 60 MG TAB.ER.24H PO SCH (09:58)
[2019-03-28] MEDS: Venlafaxine XR (24 HR) 37.5 MG CAP.ER.24H PO SCH (09:58)
[2019-03-28] MEDS: Famotidine 20 MG TABLET PO SCH (09:58)
[2019-03-28] MEDS: Fluticasone Propionate Nasal 50 MCG/SPRAY BOTTLE NS SCH (09:59)
[2019-03-28] MEDS: (Pravastatin Sodium [Pravachol] 40 MG) PO SCH (10:00)
[2019-03-28] MEDS: FLUOROURACIL 30 GM TP SCH (10:00)
[2019-03-28] MEDS: THEOPHYLLINE 150 MG PO SCH (10:01)
[2019-03-28] MEDS: (Roflumilast [Daliresp] 500 MCG) PO SCH (10:01)
--- NOTE | 2019-03-28 11:39 | Discharge Summary ---
Orders not resulted at time of discharge: Pending orders 03/24/19 12:04 Culture,Sputum with Gram Stain [] Routine Date of Encounter: 03/28/19 Time of Encounter: 11:37 - Discharge Diagnosis (1) Pneumonia Priority: Primary Status: Acute Comments: Patient was admitted with complaints of shortness of breath and was found to have left lower lobe pneumonia per chest x-ray on admission. Patient also continues with complaints of left chest flank pain is been a chronic issue over the past several months. Patient has been treated with IV antibiotics and continues on Zithromax at this time. Patient will be given a prescription for 5 days of Zithromax to finish out her treatment. Patient had follow-up chest x- ray which showed clearing of the left lower lobe pneumonia. Patient continues with complaints of pain to the left chest flank that no rubs or crepitus is heard on auscultation. Patient will be given a prescription for Toradol for the next 7 days and follow-up with her PCP within the next week for further evaluation and treatment Qualifiers: Pneumonia type: due to unspecified organism Laterality: left Lung lo cation: lower lobe of lung Qualified Code(s): J18.1 - Lobar pneumonia, unspecified organism (2) COPD (chronic obstructive pulmonary disease) Priority: Secondary Status: Acute Comments: Patient was treated for pneumonia during her stay. Patient continues on bron chodilators at this time and denies any dyspnea or productive cough. Patient will continue on her current medications after discharge and follow up with her PCP after discharge within the next week for further evaluation and treatment Qualifiers: COPD type: unspecified COPD Qualified Code(s): J44.9 - Chronic obstructive pulmonary disease, unspecified (3) CAD (coronary artery disease) Priority: Secondary Status: Acute Comments: No issues during her stay at this facility. Patient has denied any chest discomforts or palpitations. We will continue with current home medications after discharge and follow-up with her PCP Qualifiers: Coronary Disease-Associated Artery/Lesion type: unspecified vessel or lesion type [place] vs. transplanted heart: [place] heart Associated angina: without angina Qualified Code(s): I25.10 - Atherosclerotic heart disease of [place] coronary artery without angina pectoris (4) Hypertension Priority: Secondary Status: Acute Comments: Vital signs remained stable during his stay. Patient will continue with current home medications and follow-up with her PCP Qualifiers: Hypertension type: essential hypertension Qualified Code(s): I10 - Essential (primary) hypertension Hospital course: Ms. Gonsales is a 83 year old female, admitted to hospital after presenting to emergency room with shortness of breath and pain and left lung area. Patient states this started the night before admission and progressively got worse throughout the day. Patient denied cough, fever, chills, nausea vomiting or diarrhea. Patient had a chest x-ray which confirmed lower left lobe pneumonia and was treated with IV antibiotics during her stay of facility. Patient has remained afebrile for past 48 hours. Denies any dyspnea or productive cough. Follow-up chest x-ray which showed clearing of left lower lobe pneumonia. Patient will be given a prescription for Zithromax to be continued for the next 5 days complete her treatment. Patient was also had complaints of left chest flank pain which has been present over the past several months. Patient will be given a prescription for Toradol for when necessary use and is to follow-up with her PCP in the next 7 days. Past medical history includes COPD, CAD, Gerd, hyperlipidemia, hypertension, anxiety and depression. Lives at home with Niece. Does have home oxygen and ju st wears on an as needed basis. Discharge discussed with: patient Time spent discussing smoking cessation with patient: 3 to 10 minutes - Time Spent with Patient Total time spent providing and/or coordinating discharge services: Time spent: Less than 30 minutes - Discharge Medications Prescriptions: No Action Cholecalciferol (Vitamin D3) [Vitamin D] 2,000 unit PO DAILY Triamcinolone Acetonide [Nasacort] 2 spray NS DAILY Theophylline Anhydrous [Theophylline] 150 mg PO DAILY Raloxifene [Evista] 60 mg PO DAILY Lactobacillus Combination No.8 [Adult Probiotic] 1 tab PO DAILY Pravastatin Sodium [Pravachol] 40 mg PO DAILY NIFEdipine [Nifedipine ER] 30 mg PO DAILY Montelukast [Singulair] 10 mg PO DAILY Isosorbide MONOnitrate [Isosorbide Mononitrate] 60 mg PO DAILY Ipratropium/Albuterol Neb [Duoneb] 3 ml IH QID Guaifenesin [Mucus ER] 600 mg PO BID PRN PRN Reason: Congestion Furosemide [Lasix] 20 mg PO DAILY Alendronate Sodium [Fosamax] 70 mg PO QWEEK Buspirone HCl [Buspar] 10 mg PO TID Aspirin [Adult Aspirin Regimen] 81 mg PO DAILY Calcium Carbonate [Calcium] 600 mg PO DAILY Venlafaxine HCl [Effexor Xr] 37.5 mg PO DAILY Fluticasone/Umeclidin/Vilanter [Trelegy Ellipta 100-62.5-25] 1 each IH DAILY Levalbuterol Tartrate [Xopenex Hfa] 15 gm IH Q8H #1 hfa.aer.ad Fluorouracil [Carac] 30 gm TP BID Metoprolol Tartrate [Lopressor] 25 mg PO BID Potassium Chloride [Klor-Con 10] 20 meq PO DAILY Ranitidine HCl [Acid Real Estate Instructor] 150 mg PO BID Roflumilast [Daliresp] 500 mcg PO DAILY Vit C/E/Zn/Coppr/Lutein/Zeaxan [Preservision Areds 2 Softgel] 2 / PO DAILY Home Medications: Cholecalciferol (Vitamin D3) [Vitamin D] 2,000 unit PO DAILY 11/30/17 [History] Ipratropium/Albuterol Neb [Duoneb] 3 ml IH QID 11/30/17 [History] Isosorbide MONOnitrate [Isosorbide Mononitrate] 60 mg PO DAILY 11/30/17 [History] Lactobacillus Combination No.8 [Adult Probiotic] 1 tab PO DAILY 11/30/17 [History] Montelukast [Singulair] 10 mg PO DAILY 11/30/17 [History] NIFEdipine [Nifedipine ER] 30 mg PO DAILY 11/30/17 [History] Pravastatin Sodium [Pravachol] 40 mg PO DAILY 11/30/17 [History] Raloxifene [Evista] 60 mg PO DAILY 11/30/17 [History] Theophylline Anhydrous [Theophylline] 150 mg PO DAILY 11/30/17 [History] Triamcinolone Acetonide [Nasacort] 2 spray NS DAILY 11/30/17 [History] Alendronate Sodium [Fosamax] 70 mg PO QWEEK 02/19/18 [History] Aspirin [Adult Aspirin Regimen] 81 mg PO DAILY 02/19/18 [History] Buspirone HCl [Buspar] 10 mg PO TID 02/19/18 [History] Furosemide [Lasix] 20 mg PO DAILY 02/19/18 [History] Guaifenesin [Mucus ER] 600 mg PO BID PRN 02/19/18 [History] Calcium Carbonate [Calcium] 600 mg PO DAILY 08/20/18 [History] Venlafaxine HCl [Effexor Xr] 37.5 mg PO DAILY 08/20/18 [History] Fluticasone/Umeclidin/Vilanter [Trelegy Ellipta 100-62.5-25] 1 each IH DAILY 12/11/18 [History] Levalbuterol Tartrate [Xopenex Hfa] 15 gm IH Q8H #1 hfa.aer.ad 12/27/18 [Rx] Fluorouracil [Carac] 30 gm TP BID 02/11/19 [History] Metoprolol Tartrate [Lopressor] 25 mg PO BID 02/11/19 [History] Potassium Chloride [Klor-Con 10] 20 meq PO DAILY 02/11/19 [History] Ranitidine HCl [Acid Real Estate Instructor] 150 mg PO BID 02/11/19 [History] Roflumilast [Daliresp] 500 mcg PO DAILY 02/11/19 [History] Vit C/E/Zn/Coppr/Lutein/Zeaxan [Preservision Areds 2 Softgel] 2 / PO DAILY 03/21/19 [History] Allergies/Adverse Reactions: Allergy/AdvReac Type Severity Reaction Status Date / Time atorvastatin [From Lipitor] Allergy Hives Verified 03/21/19 14:49 doxycycline Allergy Rash Verified 03/21/19 14:49 iodine Allergy See Verified 03/21/19 14:49 Comments iopamidol [From Isovue-M] Allergy Hives Verified 03/21/19 14:49 lisinopril Allergy Rash Verified 03/21/19 14:49 metformin Allergy Rash Verified 03/21/19 14:49 Penicillins Allergy Gastrointestinal Verified 03/21/19 14:49 Upset Sulfa (Sulfonamide Allergy Rash Verified 03/21/19 14:49 Antibiotics) Date of admission: 03/21/19 17:52 Primary care physician: Meet Calvo MD Consults: 03/26/19 13:07 Consult to Physical Therapy [CONS] Routine Comment: Evaluate, develop and implement POC Reason for Consult: increased weakness and unsteady gait Does patient have active BEDREST order?: No Is patient medically & hemodynamically stable?: Yes Patient assessed for mobility or mobilized this visit?: No Discharging clinician: Sukhdeep Calloway - Constitutional Vitals: Temp Pulse Resp BP Pulse Ox 98.4 F 89 18 157/133 97 03/28/19 08:00 03/28/19 08:00 03/28/19 11:25 03/28/19 08:00 03/28/19 11:25 General appearance: Present: cooperative, A&O X 3, pleasant, no acute distress, answers questions appropriately - Head Head exam: Present: atraumatic, normocephalic - Eye Eye exam: Present: PERRL, conjuntiva pink, sclera anicteric Pupils: Present: PERRL - Neck Neck exam general surgery: Present: supple, trachea midline. Absent: lymphadenopathy - Respiratory Respiratory exam: Present: decreased breath sounds, CTAB, rales. Absent: accessory muscle use, rhonchi, wheezes Additional comments: Lungs are clear throughout upper [place] with diminished breath sounds to lower half. Patient with fine bibasilar rales. Respiratory effort appears relaxed. No productive cough noted. - Cardiovascular Cardiovascular exam: Present: RRR, +S1, +S2. Absent: diastolic murmur, gallop, rubs, systolic murmur - GI/Abdominal GI/Abdominal exam: Present: normal bowel sounds, soft, no peritoneal signs. Absent: distended, tenderness - Extremities Exam Extremities exam: Present: warm, radial pulses palpable and symmetrical. Absent: calf tenderness, cyanotic, pedal edema - Neurological Exam Neurological exam: Present: CN II-XII intact, oriented X3, no focal deficits. Absent: pronater drift, facial droop, speech deficit - Skin Skin exam: Present: dry, intact - Patient Status Disposition: Home, Self-Care Condition: Good Functional capacity at discharge: uses cane/walker Overall status at discharge: patient is progressing back to baseline - Discharge Instructions Follow Up With: Meet Calvo MD [Primary Care Provider] - Forms: ED Satisfaction Letter - Diet and Activity Activity: increase activity as tolerated Diet: low fat, low cholesterol, low salt diet
[2019-03-28] MEDS: Azithromycin 500 MG in D5% in Water 250 ML IVPB SCH (12:56)
[2019-03-28] MEDS: TRELEGY ELLIPTA IH SCH (13:28)
== END 2019-03-28 14:50 | disposition home or self-care (01) | DRG 194 ==
LOC: EMEROOGRE 14:32 → INPGRE 14:32 → OBSVTOIN 17:52 → INPGRE 18:50

== ENCOUNTER 2021-06-15 18:28 | Inpatient (IN) ==
[2021-06-15] MEDS ORDERED: Nitroglycerin 0.4 MG TAB.SUBL SL PRN (23:35)
[2021-06-15] MEDS ORDERED: NON-FORMULARY MEDICATION 1 EACH EACH (Alendronate Sodium [Fosamax] 70 MG Tablet) PO SCH (23:45)
[2021-06-16] MEDS ORDERED: NON-FORMULARY MEDICATION 1 EACH EACH (Fluticasone/Umeclidin/Vilanter [Trelegy Ellipta 100- IH SCH (09:00)
[2021-06-16] MEDS ORDERED: Ipratropium/Albuterol Neb 3 ML IH PRN (16:09)
[2021-06-16] MEDS ORDERED: CHLORASEPTIC SPRAY TP PRN (16:37)
[2021-06-16] MEDS: *HR* Enoxaparin 40 MG/0.4 ML SYRINGE SQ SCH (17:42)
[2021-06-16] MEDS: Budesonide/Formoterol 160/4.5 1 PUFF INH IH SCH (20:48)
[2021-06-16] MEDS ORDERED: Levalbuterol 1 PUFF INHALER IH SCH (23:00)
[2021-06-17] MEDS: *HR* Enoxaparin 40 MG/0.4 ML SYRINGE SQ SCH (05:19)
[2021-06-17] MEDS: Venlafaxine XR (24 HR) 37.5 MG CAP.ER.24H PO SCH (08:23)
[2021-06-17] MEDS: Aspirin Enteric Coated 81 MG Tablet PO SCH (08:23)
[2021-06-17] MEDS: Lactobacillus 1 EACH CAP.SPRINK PO SCH (08:23)
[2021-06-17] MEDS: Multivit/Ca/Min/Fe/FA 1 TAB TABLET PO SCH (08:24)
[2021-06-17] MEDS: Cholecalciferol (D-3) 1,000 UNIT (25MCG) TABLET PO SCH (08:24)
[2021-06-17] MEDS: Furosemide 20 MG TABLET PO SCH (08:27)
[2021-06-17] MEDS: (Pravastatin Sodium [Pravachol] 40 MG Tablet) PO SCH (08:28)
[2021-06-17] MEDS: (Mirabegron [Myrbetriq] 50 MG Tab.Er.24h) PO SCH (08:29)
[2021-06-17] MEDS ORDERED: Fluticasone Propionate Nasal 50 MCG/SPRAY BOTTLE NS SCH (09:00)
[2021-06-17] MEDS: Budesonide/Formoterol 160/4.5 1 PUFF INH IH SCH ×2 (10:44→20:18)
[2021-06-17] MEDS: Tiotropium 10 INH DOSE IH SCH (10:48)
[2021-06-17] MEDS ORDERED: Sennosides/Docusate Sodium TABLET PO PRN (13:58)
[2021-06-17] MEDS: polyethylene glycoL 3350 17 GM POWD.PACK PO SCH (15:51)
[2021-06-18] MEDS: *HR* Enoxaparin 40 MG/0.4 ML SYRINGE SQ SCH (05:35)
[2021-06-18 06:15] LABS: Hematocrit 30.3 % (35.3-44.9); Hemoglobin 9.9 g/dL (11.5-15.4); Mean Corpuscular HGB Conc 32.7 g/dL (31.6-35.5); Mean Corpuscular Hemoglobin 30.3 pg (28.0-33.3); Mean Corpuscular Volume 92.7 fL (83.0-100.0); Platelet Count 392 K/mcL (140-400); Red Blood Count 3.27 M/mcL (3.82-4.97); White Blood Count 10.5 K/mcL (4.3-11.1)
[2021-06-18 06:33] LABS: BUN/Creatinine Ratio 13 (6-26); Blood Urea Nitrogen 9 mg/dL (8-23); Carbon Dioxide 30 mEq/L (23-29); Chloride 101 mEq/L (98-107); Glucose 96 mg/dL (70-105); Osmolality,Calculated 281 (280-300); Potassium 3.7 mEq/L (3.5-5.1); Sodium 136 mEq/L (136-145); eGFR For African Americans > 60 (> 60); eGFR For Non-African Americans > 60 (> 60)
[2021-06-18] MEDS: Multivit/Ca/Min/Fe/FA 1 TAB TABLET PO SCH (10:59)
[2021-06-18] MEDS: Furosemide 20 MG TABLET PO SCH (10:59)
[2021-06-18] MEDS: Lactobacillus 1 EACH CAP.SPRINK PO SCH (10:59)
[2021-06-18] MEDS: Cholecalciferol (D-3) 1,000 UNIT (25MCG) TABLET PO SCH (10:59)
[2021-06-18] MEDS: Aspirin Enteric Coated 81 MG Tablet PO SCH (11:00)
[2021-06-18] MEDS: Fluticasone Propionate Nasal 50 MCG/SPRAY BOTTLE NS SCH (11:00)
[2021-06-18] MEDS: Venlafaxine XR (24 HR) 37.5 MG CAP.ER.24H PO SCH (11:00)
[2021-06-18] MEDS: polyethylene glycoL 3350 17 GM POWD.PACK PO SCH (11:01)
[2021-06-18] MEDS: (Mirabegron [Myrbetriq] 50 MG Tab.Er.24h) PO SCH (11:02)
[2021-06-18] MEDS: (Pravastatin Sodium [Pravachol] 40 MG Tablet) PO SCH (11:02)
[2021-06-18] MEDS: Tiotropium 10 INH DOSE IH SCH (11:13)
[2021-06-18] MEDS: Budesonide/Formoterol 160/4.5 1 PUFF INH IH SCH ×2 (11:14→22:23)
[2021-06-18] MEDS ORDERED: Bisacodyl 10 MG RECTAL SUPPOSITORY RC ONE (14:54)
[2021-06-19] MEDS: *HR* Enoxaparin 40 MG/0.4 ML SYRINGE SQ SCH (05:54)
[2021-06-19] MEDS: polyethylene glycoL 3350 17 GM POWD.PACK PO SCH (08:34)
[2021-06-19] MEDS: (Pravastatin Sodium [Pravachol] 40 MG Tablet) PO SCH (08:34)
[2021-06-19] MEDS: (Mirabegron [Myrbetriq] 50 MG Tab.Er.24h) PO SCH (08:35)
[2021-06-19] MEDS: Lactobacillus 1 EACH CAP.SPRINK PO SCH (08:36)
[2021-06-19] MEDS: Aspirin Enteric Coated 81 MG Tablet PO SCH (08:36)
[2021-06-19] MEDS: Furosemide 20 MG TABLET PO SCH (08:36)
[2021-06-19] MEDS: Cholecalciferol (D-3) 1,000 UNIT (25MCG) TABLET PO SCH (08:36)
[2021-06-19] MEDS: Fluticasone Propionate Nasal 50 MCG/SPRAY BOTTLE NS SCH (08:36)
[2021-06-19] MEDS: Multivit/Ca/Min/Fe/FA 1 TAB TABLET PO SCH (08:38)
[2021-06-19] MEDS: Venlafaxine XR (24 HR) 37.5 MG CAP.ER.24H PO SCH (08:52)
[2021-06-19] MEDS: Tiotropium 10 INH DOSE IH SCH (12:12)
[2021-06-19] MEDS: Budesonide/Formoterol 160/4.5 1 PUFF INH IH SCH ×2 (12:12→20:07)
[2021-06-19] MEDS: Magnesium Oxide 400 MG TABLET PO SCH (21:55)
[2021-06-20] MEDS: *HR* Enoxaparin 40 MG/0.4 ML SYRINGE SQ SCH (04:17)
[2021-06-20 07:51] LABS: Hematocrit 30.9 % (35.3-44.9); Hemoglobin 10.1 g/dL (11.5-15.4); Mean Corpuscular HGB Conc 32.7 g/dL (31.6-35.5); Mean Corpuscular Hemoglobin 31.3 pg (28.0-33.3); Mean Corpuscular Volume 95.7 fL (83.0-100.0); Mean Platelet Volume 10.2 fL (9.4-12.4); Platelet Count 266 K/mcL (140-400); Red Blood Count 3.23 M/mcL (3.82-4.97); Red Cell Distribution Width 15.1 % (11.5-14.5); White Blood Count 9.4 K/mcL (4.3-11.1)
[2021-06-20 08:09] LABS: Alanine Aminotransferase 4 Units/L (7-52); Albumin 2.5 g/dL (3.5-5.7); Albumin/Globulin Ratio 1.1 (1.1-2.2); Alkaline Phosphatase 51 Units/L (34-104); Aspartate Amino Transferase 11 Units/L (13-39); BUN/Creatinine Ratio 21 (6-26); Bilirubin,Total 0.4 mg/dL (0.3-1.0); Blood Urea Nitrogen 13 mg/dL (8-23); Calcium 8.6 mg/dL (8.6-10.3); Carbon Dioxide 26 mEq/L (23-29); Chloride 102 mEq/L (98-107); Globulin 2.2 g/dL (2.4-3.5); Glucose 98 mg/dL (70-105); Magnesium 1.9 mg/dL (1.6-2.6); Osmolality,Calculated 286 (280-300); Sodium 138 mEq/L (136-145); Total Protein 4.7 g/dL (6.4-8.9); eGFR For African Americans > 60 (> 60); eGFR For Non-African Americans > 60 (> 60)
[2021-06-20] MEDS: Venlafaxine XR (24 HR) 37.5 MG CAP.ER.24H PO SCH (09:42)
[2021-06-20] MEDS: Aspirin Enteric Coated 81 MG Tablet PO SCH (09:42)
[2021-06-20] MEDS: polyethylene glycoL 3350 17 GM POWD.PACK PO SCH (09:42)
[2021-06-20] MEDS: Cholecalciferol (D-3) 1,000 UNIT (25MCG) TABLET PO SCH (09:42)
[2021-06-20] MEDS: Lactobacillus 1 EACH CAP.SPRINK PO SCH (09:43)
[2021-06-20] MEDS: Furosemide 20 MG TABLET PO SCH (09:43)
[2021-06-20] MEDS: Multivit/Ca/Min/Fe/FA 1 TAB TABLET PO SCH (09:43)
[2021-06-20] MEDS: Fluticasone Propionate Nasal 50 MCG/SPRAY BOTTLE NS SCH (09:44)
[2021-06-20] MEDS: Magnesium Oxide 400 MG TABLET PO SCH ×2 (09:44→22:59)
[2021-06-20] MEDS: (Mirabegron [Myrbetriq] 50 MG Tab.Er.24h) PO SCH (09:55)
[2021-06-20] MEDS: (Pravastatin Sodium [Pravachol] 40 MG Tablet) PO SCH (09:55)
[2021-06-20] MEDS: Tiotropium 10 INH DOSE IH SCH (10:19)
[2021-06-20] MEDS: Budesonide/Formoterol 160/4.5 1 PUFF INH IH SCH ×2 (10:20→20:05)
[2021-06-21] MEDS: *HR* Enoxaparin 40 MG/0.4 ML SYRINGE SQ SCH (06:10)
[2021-06-21] MEDS: Aspirin Enteric Coated 81 MG Tablet PO SCH (08:39)
[2021-06-21] MEDS: (Mirabegron [Myrbetriq] 50 MG Tab.Er.24h) PO SCH (08:39)
[2021-06-21] MEDS: Multivit/Ca/Min/Fe/FA 1 TAB TABLET PO SCH (08:39)
[2021-06-21] MEDS: (Pravastatin Sodium [Pravachol] 40 MG Tablet) PO SCH (08:39)
[2021-06-21] MEDS: Furosemide 20 MG TABLET PO SCH (08:39)
[2021-06-21] MEDS: Venlafaxine XR (24 HR) 37.5 MG CAP.ER.24H PO SCH (08:39)
[2021-06-21] MEDS: Magnesium Oxide 400 MG TABLET PO SCH ×2 (08:40→20:49)
[2021-06-21] MEDS: Cholecalciferol (D-3) 1,000 UNIT (25MCG) TABLET PO SCH (08:40)
[2021-06-21] MEDS: Lactobacillus 1 EACH CAP.SPRINK PO SCH (08:40)
[2021-06-21] MEDS: Fluticasone Propionate Nasal 50 MCG/SPRAY BOTTLE NS SCH (08:41)
[2021-06-21] MEDS: polyethylene glycoL 3350 17 GM POWD.PACK PO SCH (08:41)
[2021-06-21] MEDS: Tiotropium 10 INH DOSE IH SCH (09:50)
[2021-06-21] MEDS: Budesonide/Formoterol 160/4.5 1 PUFF INH IH SCH ×2 (09:52→20:31)
[2021-06-22] MEDS: *HR* Enoxaparin 40 MG/0.4 ML SYRINGE SQ SCH (04:41)
[2021-06-22 07:04] VITALS: BP 112/74; PULSE 82; TEMP 98.2
[2021-06-22] MEDS: polyethylene glycoL 3350 17 GM POWD.PACK PO SCH (09:27)
[2021-06-22] MEDS: Furosemide 20 MG TABLET PO SCH (09:28)
[2021-06-22] MEDS: Lactobacillus 1 EACH CAP.SPRINK PO SCH (09:28)
[2021-06-22] MEDS: Aspirin Enteric Coated 81 MG Tablet PO SCH (09:28)
[2021-06-22] MEDS: Multivit/Ca/Min/Fe/FA 1 TAB TABLET PO SCH (09:28)
[2021-06-22] MEDS: Cholecalciferol (D-3) 1,000 UNIT (25MCG) TABLET PO SCH (09:28)
[2021-06-22] MEDS: Magnesium Oxide 400 MG TABLET PO SCH (09:28)
[2021-06-22] MEDS: Venlafaxine XR (24 HR) 37.5 MG CAP.ER.24H PO SCH (09:28)
[2021-06-22] MEDS: (Pravastatin Sodium [Pravachol] 40 MG Tablet) PO SCH (09:29)
[2021-06-22] MEDS: (Mirabegron [Myrbetriq] 50 MG Tab.Er.24h) PO SCH (09:29)
[2021-06-22] MEDS: Fluticasone Propionate Nasal 50 MCG/SPRAY BOTTLE NS SCH (09:29)
[2021-06-22] MEDS: Tiotropium 10 INH DOSE IH SCH (11:11)
[2021-06-22] MEDS: Budesonide/Formoterol 160/4.5 1 PUFF INH IH SCH (11:12)
[2021-06-22 11:17] VITALS: RESP 19; O2SAT 97
[2021-06-22] MEDS ORDERED: FLU Vac QV 21-22 (6Month+)/PF 0.5 ML SYRINGE IM ONE (13:15)
== END 2021-06-22 14:46 | disposition home health service (06) | DRG 194 ==
LOC: INPGRE 06-16 15:01
PROVIDERS: ADMIT Family Medicine; ATTEND Family Medicine